=== PATIENT | male | born 1960 | race Caucasian/White ===

== ENCOUNTER → 2016-07-18 | Outpatient (CLI) | payer MEDICARE, OTHER ==
[~2016-07-18] MED LIST: ALLERGY SHOTS; CALCIUM600 MG PO; CELEXA40 MG PO; COMPLETE MULTI1 EAC1 PO; DILTIAZEM ER360 MG PO; FLONASE ALLER15.8 ML; LIPITOR TAB 2020 MG PO; LISINOPRIL2.5 MG PO; NORCO 7.5-3251 EACH PO; PREDNISONE 5 MG5 MG PO; PROAIR HFA8.5 GM INH; PROTONIX40 MG PO; SENOKOT-S TABL1 EACH PO; SINGULAIR10 MG PO; SPIRONOLACTONE25 MG PO; SYMBICORT 160-1 INHA INH; XOLAIR 150150 MG/VIA INJ
== END ==
LOC: OPSV 07-11 08:00
DX: J45.40 Moderate persistent asthma, uncomplicated (principal)
CPT/HCPCS: 96372; J2357

== ENCOUNTER → 2016-08-01 | Outpatient (CLI) | payer MEDICARE, OTHER ==
[~2016-08-01] VITALS: Ht 180.3 cm; Wt 119.3 kg
== END ==
LOC: OPSV 07:00
PROVIDERS: Internal Medicine Nephrology
DX: J45.40 Moderate persistent asthma, uncomplicated (principal); N18.2 Chronic kidney disease, stage 2 (mild); J30.9 Allergic rhinitis, unspecified
CPT/HCPCS: 36415; 80053; 82043; 82570; 84156; 96372; J2357

== ENCOUNTER → 2016-08-22 | Outpatient (CLI) | payer MEDICARE, OTHER ==
[~2016-08-22] VITALS: Ht 180.3 cm; Wt 120.2 kg
== END ==
LOC: OPSV 08-15 07:00
DX: J45.40 Moderate persistent asthma, uncomplicated (principal)
CPT/HCPCS: 96372; J2357

== ENCOUNTER → 2016-09-05 | Outpatient (CLI) | payer MEDICARE, OTHER ==
[~2016-09-05] VITALS: Ht 180.3 cm; Wt 120.2 kg
== END ==
LOC: OPSV 07:00
DX: J45.40 Moderate persistent asthma, uncomplicated (principal); J30.9 Allergic rhinitis, unspecified
CPT/HCPCS: 96372; J2357

== ENCOUNTER → 2016-09-19 | Outpatient (CLI) | payer MEDICARE, OTHER ==
[~2016-09-19] VITALS: Ht 180.3 cm; Wt 120.2 kg
== END ==
LOC: OPSV 07:30
DX: J45.40 Moderate persistent asthma, uncomplicated (principal); J30.9 Allergic rhinitis, unspecified
CPT/HCPCS: 96372; J2357

== ENCOUNTER → 2016-10-03 | Outpatient (CLI) | payer MEDICARE, OTHER | LOC: OPSV 06:58 | DX: J45.40 Moderate persistent asthma, uncomplicated (principal); J30.9 Allergic rhinitis, unspecified | CPT/HCPCS: 96372; J2357 ==

== ENCOUNTER → 2016-10-18 | Outpatient (CLI) | payer MEDICARE, OTHER ==
[~2016-10-18] VITALS: Ht 180.3 cm; Wt 120.2 kg
== END ==
LOC: OPSV 07:30
DX: J45.40 Moderate persistent asthma, uncomplicated (principal); J30.9 Allergic rhinitis, unspecified
CPT/HCPCS: 96372; J2357

== ENCOUNTER → 2016-11-07 | Outpatient (CLI) | payer MEDICARE, OTHER ==
[~2016-11-07] VITALS: Ht 180.3 cm; Wt 120.2 kg
== END ==
LOC: OPSV 10-31 07:30
DX: J45.40 Moderate persistent asthma, uncomplicated (principal)
CPT/HCPCS: 96372; J2357

== ENCOUNTER → 2017-02-06 | Outpatient (CLI) | payer MEDICARE, OTHER ==
[~2017-02-06] VITALS: Ht 180.3 cm; Wt 120.2 kg
== END ==
LOC: OPSV 07:00
DX: J45.40 Moderate persistent asthma, uncomplicated (principal)
CPT/HCPCS: 96372; J2357

== ENCOUNTER → 2020-05-18 | Outpatient (CLI) | payer MEDICARE, OTHER ==
[~2020-05-18] VITALS: Ht 180.3 cm; Wt 120.2 kg
== END ==
LOC: OPSV 11-11 08:00
DX: J45.40 Moderate persistent asthma, uncomplicated (principal)
CPT/HCPCS: 96372; J2182

== ENCOUNTER → 2020-06-22 | Outpatient (CLI) | payer MEDICARE, OTHER ==
[~2020-06-22] VITALS: Ht 180.3 cm; Wt 120.2 kg
== END ==
LOC: OPSV 06-15 08:00
DX: J45.40 Moderate persistent asthma, uncomplicated (principal)
CPT/HCPCS: 96372; J2182

== ENCOUNTER → 2020-08-03 | Outpatient (CLI) | payer MEDICARE, OTHER ==
[~2020-08-03] VITALS: Ht 180.3 cm; Wt 120.2 kg
[2020-08-04 12:11] LABS: ALPHA-1-ANTITRYPSIN, SERUM 142 mg/dL (101-187)
[2020-08-04 13:11] LABS: MITOCHONDRIAL (M2) ANTIBODY 41.2 Units (0.0-20.0)
== END ==
LOC: OPSV 07-20 07:00
PROVIDERS: Internal Medicine Gastroenterology
DX: R94.5 Abnormal results of liver function studies (principal)
CPT/HCPCS: 36415; 82103; 82728; 83540; 83550; 86038; 96372; J2182

== ENCOUNTER → 2020-08-31 | Outpatient (CLI) | payer MEDICARE, OTHER ==
[~2020-08-31] VITALS: Ht 180.3 cm; Wt 120.2 kg
== END ==
LOC: OPSV 08:00
DX: J30.9 Allergic rhinitis, unspecified (principal)
CPT/HCPCS: 96372; J2182

== ENCOUNTER → 2021-02-11 | Outpatient (CLI) | payer MEDICARE, OTHER | LOC: OPSV 07:00 | DX: J30.9 Allergic rhinitis, unspecified (principal) | CPT/HCPCS: 96372; J2182 ==

== ENCOUNTER 2021-02-17 10:57 | Inpatient (IN) | payer MEDICARE, OTHER ==
[~2021-02-17] VITALS: Ht 180.3 cm; Wt 99.8 kg
[~2021-02-17 10:57] MED LIST changes: +ATORVASTATIN CA40 MG PO; -LIPITOR TAB 2020 MG PO
[2021-02-17 11:56] LABS: HEMOGLOBIN 15.3 gm/dl (14.0-17.5); RED BLOOD COUNT 4.54 M/UL (4.20-5.50); WHITE BLOOD COUNT 10.9 K/UL (4.5-11.0)
[2021-02-17 14:11] LABS: RBC (AUTOMATED) 2000 10^6; WBC (AUTOMATED) 47740 10^3
[2021-02-17 14:12] LABS: MONONUCLEAR CELLS 18 %; POLYMORPHONUCLEAR 82 %
[2021-02-17] MEDS ORDERED: OMEPRAZOLE MAGN20 MG PO (16:15)
[2021-02-17] MEDS ORDERED: ALBUTEROL2.5 MG/3 M INH (16:17)
[2021-02-17] MEDS ORDERED: CIALIS5 MG PO (16:18)
[2021-02-17] MEDS ORDERED: JANUVIA100 MG PO (16:19)
[2021-02-17] MEDS ORDERED: ADVAIR 500-501 EACH INH (16:21)
[2021-02-17] MEDS ORDERED: NUCALA100 MG/11 SQ (16:23)
[2021-02-17] MEDS ORDERED: CALTRATE 600 +1 EAC1 PO (16:24)
[2021-02-17] MEDS ORDERED: DAILY VITE1 EACH PO (16:24)
[2021-02-17] MEDS ORDERED: ASPIRIN EC81 MG PO (16:26)
[2021-02-18 05:49] LABS: HEMOGLOBIN 15.6 gm/dl (14.0-17.5); RED BLOOD COUNT 4.65 M/UL (4.20-5.50); WHITE BLOOD COUNT 10.5 K/UL (4.5-11.0)
[2021-02-18 14:14] LABS: PROTEIN, BODY FLUID 3.7 g/dL (.)
[2021-02-18 20:29] LABS: ACINETOBACTER BAUMANNII Not Detected (Negative); CANDIDA ALBICANS Not Detected (Negative); CANDIDA KRUSEI Not Detected (Negative); CANDIDA TROPICALIS Not Detected (Negative); ENTEROCOCCUS Not Detected (Negative); ESCHERICHIA COLI Not Detected (Negative); HAEMOPHILUS INFLUENZAE Not Detected (Negative); KLEBSIELLA OXYTOCA Not Detected (Negative); KLEBSIELLA PNEUMONIAE Not Detected (Negative); KPC-CARBAPENEM-RESISTANCE GENE Not Detected (Negative); PROTEUS Not Detected (Negative); PSEUDOMONAS AERUGINOSA Not Detected (Negative); SERRATIA MARCESANS Not Detected (Negative); STAPHYLOCOCCUS AUREUS Not Detected (Negative); STREP AGALACTIAE (GROUP B) Not Detected (Negative); STREP PYOGENES (GROUP A) Not Detected (Negative); STREPTOCOCCUS Not Detected (Negative); vanA/B (VANCOMYCIN RESIST GENE Not Detected (Negative)
[2021-02-18 22:20] LABS: mecA (METHICILLIN RESIST GENE DETECTED (Negative)
[2021-02-18 22:21] LABS: STAPHYLOCOCCUS DETECTED (Negative)
== END 2021-02-19 11:59 | disposition home or self-care (01) | DRG 554 ==
LOC: ER1 10:57 → CDU 15:24 → M/S 15:24
PROVIDERS: Emergency Medicine; Physician Assistant Medical; ADMIT Internal Medicine Infectious Disease
DX: M17.12 Unilateral primary osteoarthritis, left knee (principal); I10 Essential (primary) hypertension; J44.9 Chronic obstructive pulmonary disease, unspecified; E11.9 Type 2 diabetes mellitus without complications; Z20.822 Contact with and (suspected) exposure to COVID-19; Z96.652 Presence of left artificial knee joint; E78.5 Hyperlipidemia, unspecified; Z96.662 Presence of left artificial ankle joint; Z98.890 Other specified postprocedural states; Z82.49 Family history of ischemic heart disease and other diseases of the circulatory system; Z83.3 Family history of diabetes mellitus; Z79.82 Long term (current) use of aspirin; Z79.899 Other long term (current) drug therapy; Z86.14 Personal history of Methicillin resistant Staphylococcus aureus infection
CPT/HCPCS: 36415; 73564; 80048; 80053; 80202; 82945; 82962; 83615; 83735; 84157; 84550; 85025; 85027; 85652; 86140; 87040; 87070; 87077; 87150; 87186; 87205; 89051; 89060; 93971; 94640; 94664; 94760; 96374; 96375; 96376; 99285; G0378; J0692; J2001; J3370; J7070; U0002

== ENCOUNTER → 2021-03-22 | Outpatient (CLI) | payer MEDICARE, OTHER ==
[~2021-03-22] VITALS: Ht 180.3 cm; Wt 120.2 kg
[~2021-03-22] MED LIST changes: +ADVAIR 500-501 EACH INH; +ALBUTEROL2.5 MG/3 M INH; +ASPIRIN EC81 MG PO; +CALTRATE 600 +1 EAC1 PO; +CIALIS5 MG PO; +DAILY VITE1 EACH PO; +JANUVIA100 MG PO; +NUCALA100 MG/11 SQ; +OMEPRAZOLE MAGN20 MG PO
== END ==
LOC: OPSV 03-11 08:00
DX: J45.50 Severe persistent asthma, uncomplicated (principal)
CPT/HCPCS: 96372; J2182

== ENCOUNTER → 2021-04-19 | Outpatient (CLI) | payer MEDICARE, OTHER ==
[~2021-04-19] VITALS: Ht 180.3 cm; Wt 120.2 kg
== END ==
LOC: OPSV 08:00
DX: J45.50 Severe persistent asthma, uncomplicated (principal)
CPT/HCPCS: 96372; J2182

== ENCOUNTER 2021-06-17 09:55 | Observation (INO) | payer MEDICARE, OTHER ==
[~2021-06-17] VITALS: Ht 180.3 cm; Wt 94.8 kg
[~2021-06-17 09:55] MED LIST changes: -ALBUTEROL2.5 MG/3 M INH; -ATORVASTATIN CA40 MG PO; -CALTRATE 600 +1 EAC1 PO; +CEFDINIR300 MG PO; +MEDROL4 MG PO
[2021-06-17 10:59] LABS: HEMOGLOBIN 15.4 gm/dl (14.0-17.5); RED BLOOD COUNT 4.96 M/UL (4.20-5.50); WHITE BLOOD COUNT 4.1 K/UL (4.5-11.0)
[2021-06-17 13:26] LABS: BUN/CREATININE RATIO 13 (0-10)
[2021-06-17] MEDS ORDERED: PEG3350510 GM PO (16:08)
[2021-06-17] MEDS ORDERED: GABAPENTIN300 MG PO (16:08)
[2021-06-17] MEDS ORDERED: SPIRONOLACTONE25 MG PO (16:09)
[2021-06-17] MEDS ORDERED: DILTIAZEM 24HR360 MG PO (16:09)
[2021-06-17] MEDS ORDERED: ALBUTEROL2.5 MG/3 M NEB (16:17)
[2021-06-17] MEDS ORDERED: CALTRATE 600 +1 EAC1 PO (16:24)
[2021-06-17] MEDS ORDERED: ATORVASTATIN CA40 MG PO (16:54)
[2021-06-18 02:52] LABS: HEMOGLOBIN 13.9 gm/dl (14.0-17.5); RED BLOOD COUNT 4.56 M/UL (4.20-5.50); WHITE BLOOD COUNT 3.8 K/UL (4.5-11.0)
[2021-06-18 03:30] LABS: BUN/CREATININE RATIO 14 (0-10)
--- NOTE | 2021-06-18 16:13 | NUR ---
06/18/21 1605 report called to [facility]u to be transferred to room [id number]
[2021-06-19 09:39] LABS: HEMOGLOBIN 15.2 gm/dl (14.0-17.5); RED BLOOD COUNT 4.97 M/UL (4.20-5.50); WHITE BLOOD COUNT 3.4 K/UL (4.5-11.0)
[2021-06-19 09:56] LABS: BUN/CREATININE RATIO 10 (0-10)
== END 2021-06-19 11:55 | disposition home or self-care (01) ==
LOC: ER1 09:55 → CDU 14:11 → 3 EAST 14:11 → MED SURG 4 06-18 16:43
PROVIDERS: Emergency Medicine; Internal Medicine; ADMIT Family Medicine
DX: E86.1 Hypovolemia (principal); R55 Syncope and collapse; I95.9 Hypotension, unspecified; E86.0 Dehydration; R77.8 Other specified abnormalities of plasma proteins; B34.9 Viral infection, unspecified; R61 Generalized hyperhidrosis; I10 Essential (primary) hypertension; J45.909 Unspecified asthma, uncomplicated; E11.9 Type 2 diabetes mellitus without complications; M25.512 Pain in left shoulder; R00.2 Palpitations; R19.7 Diarrhea, unspecified; R63.0 Anorexia; U07.1 COVID-19; Z96.652 Presence of left artificial knee joint; Z79.82 Long term (current) use of aspirin
CPT/HCPCS: ECHO; 36415; 70450; 71045; 80053; 80061; 81001; 82550; 82553; 82962; 83605; 83735; 83874; 83880; 84100; 84443; 84484; 85025; 85379; 93005; 93306; 93880; 94640; 94664; 94760; 96374; 96375; 99285; G0378; J0456; J0696; J2405; J3475; J7030; U0002